=== PATIENT | female | born 1965 | race Caucasian/White ===

== ENCOUNTER 2022-07-08 14:40 | Outpatient (CLI) | payer BC, SELFPAY ==
--- NOTE | 2022-07-08 15:00 | CRLHL7_ITS ---
For Patients: As a result of the Century Cures Act, medical imaging exams and procedure reports are released immediately into your electronic medical record. You may view this report before your referring provider. If you have questions, please contact your health care provider. DXA BONE MINERAL DENSITY STUDY Current height (in): 66.0. Weight (lb): 133.0. Menopause age: 48. Ethnicity: White. Reason for exam: Screening. 1. Have you had a previous hip or vertebral fracture? No. 2. Have you had any fractures during your adult life which did not result from significant trauma (e.g., auto accident)? No. 3. Did either of your parents have a hip fracture? No. 4. Do you smoke? No. 5. Have you ever taken Glucocorticoids? No. 6. Do you have rheumatoid arthritis? No. 7. Do you have secondary osteoporosis? No. 8. Do you drink 3 or more alcoholic drinks per day? No. 9. Are you being treated for osteoporosis? No. 10. Have you ever taken any of the following medications: Actonel, Evista, Fosamax, Miacalcin, Reclast, Boniva, Forteo, HRT (i.e. estrogen/hormone therapy), Protelos, Prolia, Vitamin D, Calcium, other ??? please specify. ANSWER: Yes, calcium, vitamin D. 11. Do you have any of the following medical conditions: Anorexia or bulimia, asthma or emphysema, end stage renal disease, hyperparathyroidism, any seizure disorders, cancer, inflammatory bowel diseases, hysterectomy, other ??? please specify. ANSWER: Yes, asthma. 12. What was your maximum height (inches)? 66. 13. Do you perform weight bearing exercise regularly? Yes. 14. Do you regularly consume dairy products? Yes. 15. Do you drink caffeinated beverages? Yes. 16. At what age did your period start? 9. 17. Are you premenopausal? No. 18. How many full term pregnancies have you had? 0. 19. Have you ever missed your period for more than 6 months in a row (not including or menopause)? No. TECHNIQUE: Bone mineral density study was performed using the CUPR. FINDINGS: The results of the study expressed as bone mineral density (BMD) are as follows: Lumbar spine L1 to L4: BMD: 0.896 g/cm2. T-score: -1.4. Z-score: 0.0. Neck Left: BMD: 0.690 g/cm2. T-score: -1.4. Z-score: -0.2. Right: BMD: 0.682 g/cm2. T-score: -1.5. Z-score: -0.3. Total Left: BMD: 0.811 g/cm2. T-score: -1.1. Z-score: -0.2. Right: BMD: 0.841 g/cm2. T-score: -0.8. Z-score: 0.1. IMPRESSION: Osteopenia. FRAX 10-year Fracture Risk Major Osteoporotic Fracture: 7.2 percent Hip Fracture: 0.6 percent Reported Risk Factors: [place] () Neck BMD = 0.682, BMI = 21.5 Triston Anglin M.D. Diagnostic Radiologist [email or web address] Transcribed: 9:42 a.m. DW/Dictated by: Triston Anglin MD @ 07/09/2022 6:29:00 AM (Electronically Signed)
== END 2022-07-08 14:41 | disposition home or self-care (01) ==
LOC: RAD 14:42
PROVIDERS: PCP Internal Medicine; Visit Provider Internal Medicine
DX: Z13.820 Encounter for screening for osteoporosis (principal); M85.89 Other specified disorders of bone density and structure, multiple sites; Z78.0 Asymptomatic menopausal state
CPT/HCPCS: 77080

== ENCOUNTER 2022-08-18 19:13 | Outpatient (CLI) | payer BC, SELFPAY ==
--- NOTE | 2022-08-18 19:30 | CRLHL7_ITS ---
For Patients: As a result of the Century Cures Act, medical imaging exams and procedure reports are released immediately into your electronic medical record. You may view this report before your referring provider. If you have questions, please contact your health care provider. BILATERAL SCREENING MAMMOGRAM WITH COMPUTER-AIDED DETECTION AND TOMOSYNTHESIS TECHNIQUE: CC and MLO views were obtained. These mammographic images have been obtained using full-field digital technique. These mammographic images were interpreted with the benefit of computer-aided detection. Breast Tomosynthesis was used in this interpretation. COMPARISON FILM: 03/21/2019, 04/17/2020, 06/06/2021. FINDINGS: The breasts are heterogeneously dense, which may obscure small masses IMPRESSION: There is no radiographic evidence for malignancy. ASSESSMENT: BI-RADS Category 1: Negative RECOMMENDATION: Routine screening mammogram in 1 year. A lay language report of this examination will be provided to the patient. Triston Anglin M.D. Diagnostic Radiologist [email or web address] Transcribed: 1:17 p.[email or web address] wen/Dictated by: Triston Anglin MD @ 08/26/2022 9:04:00 AM (Electronically Signed)
== END 2022-08-18 19:14 | disposition home or self-care (01) ==
LOC: MAMMO 19:13
PROVIDERS: PCP Internal Medicine; Visit Provider Internal Medicine
DX: Z12.31 Encounter for screening mammogram for malignant neoplasm of breast (principal); R92.2 Inconclusive mammogram
CPT/HCPCS: 77063; 77067

== ENCOUNTER 2023-04-27 09:30 | Outpatient (RCR) | payer BC, OTHER, SELFPAY ==
--- NOTE | 2023-02-24 18:07 | OT.OPOE ---
OT Outpatient Ortho Eval OT Outpatient Ortho Eval* Start: 02/24/23 14:20 Freq: Status: Active Protocol: Document 02/24/23 14:21 LCN (Rec: 02/24/23 18:02 LCN [id number]) E-signed By Yue Murray, OTR/L, CLT OT OP Ortho Eval Details Complexity Complexity Low Insurance Information Insurance Information Blue [employer] Outpatient History/Precautions Current Condition/Medical Diagnosis Referring Provider Dr. Guicho Gastelum Treatment Diagnosis L thumb pain/strain Date of Onset 02/22/23 Medical Conditions Respiratory,Osteoporosis Other Conditions H/o R lateral epicondylitis 15 yrs ago ( responded well to US STM, ionto) and had B CTR in ~2012. REcent dx of osteopenia. Medical/Functional History Medical History Reviewed Yes Prior Level of Function/Mobility Very active, lots of home projects, knitting, reading on Sharlene. 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 Fitness yoga and body weight calisthenics at home. Ortho Subjective Subjective Subjective Gracie Lazaro is a vibrant 57 y/ o female who has been having waxing and waning L thumb pain in the past year. 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 Currently it is hurting to grasp small cans from the top, pulling bags, boxes across surfaces, hook grasp with groceries. W/ chopping vegetables for making chili, still hurting at L CMC base from this am 4/10. Knitting does not hurt. Has adapted her phone Sharlene with pop sockets already. Pain Assessment Pain Present Pain Present Pain Reported Location L thumb CMC Description Pressure,Dull, Achy,Throbbing, Stabbing,With Movement, Heaviness Intensity 4 Range of Motion and Strength Hand/Finger/Thumb Range of Motion and Strength Hand/Finger/Thumb Range of Motion and Gets pain with weightbearing Strength in palms with down dog/planks . Full WR EX, FL, RD, UD ROM B. Tighter in scrub test at CMC's, CMC squaring B. L TH hyper flexes to 90 of 60 at IP of L TH, W deformity starting/hyperextends to 40 degrees at MP. Kepangi opposition to 10/10 and retropulsion to 2.5 of 4, narrowed web adductor space. 0/10 pn wth L gripping. 5/10 pn at IP during L hooker pinch, no pain with 3 pt pinch. Hand Pinch/Labeling Strategist Strength Hand Right Labeling Strategist Strength Position 1 (lbs) 72 Lateral Pinch Strength (lbs) 16 Three Point Pinch (lbs) 13 Left Labeling Strategist Strength Position 1 (lbs) 49 Lateral Pinch Strength (lbs) 7 Three Point Pinch (lbs) 10 Upper Extremity Special Tests Tenosynovitis Wrist Finklestein Test Positive Left Degenerative Arthritis Hand Trapeziometacarpal Joint Grind Test Positive Left OT Problems Problems Problems Decreased Strength,Decreased Range of Motion,Decreased Dexterity,Pain,Lifting, Gripping,Pinching Other Problems Opening Containers,Computer, Fasteners Patient Potential Excellent Assessment Assessment Assessment With Gracie's L thumb OA changes , tenosynovitis, edema, pain, ROM and strength loss of L hand/wrist limiting daily tasks, she would benefit from skilled OT to address these areas. Occupational Therapy Treatment Plan - OP Potential Rehabilitation Potential Excellent Set Goals Goals Set with Patient Yes Goals Goals In 8 weeks, Gracie will demonstrate:? 1) Decreased pn to <2/10 80% of the time with sustained gripping, carrying groceries, reading books and chopping vegetables 2) I HEP for stretching, gradual strengthening and self mgmt strategies. 3) improved L financial reporting accountant strength to 60# and hooker pinch to 10# with L thumb pain < 1/10. 4)??Pt to be fit with functional bracing (for CMC, wrist,) and use adaptive strategies to protect joint integrity to support less pain with ADL. Target Date 05/26/22 Treatment Plan Treatment Plan Evaluation,Edema Control, Iontophoresis,Joint Mobilization,Manual Therapy, Splinting,Ultrasound, Therapeutic Exercise,Self Care /Home Management,Education Expected Frequency 1-2x Week Expected Duration 8-10 Weeks Home Program Home Program Home Program Initiated Home Program Specifics Joint blcoking , AROM of L thumb, ice cup massage. Certification Certification I Certify That: Therapy Services Provided
== END 2023-08-25 23:59 | disposition home or self-care (01) ==
PROVIDERS: PCP Internal Medicine; Visit Provider Internal Medicine
DX: S56.012A Strain of flexor muscle, fascia and tendon of left thumb at forearm level, initial encounter (principal); Z51.89 Encounter for other specified aftercare
CPT/HCPCS: 97033; 97035; 97110; 97140; 97165; 97535; L3933; X5282

== ENCOUNTER 2023-05-28 08:38 | Outpatient (CLI) | payer OTHER, SELFPAY | END 2023-05-28 08:39 | disposition home or self-care (01) | PROVIDERS: PCP Internal Medicine; Referring Provider Internal Medicine; Visit Provider Internal Medicine | DX: Z13.6 Encounter for screening for cardiovascular disorders (principal); Z13.1 Encounter for screening for diabetes mellitus | CPT/HCPCS: 80061; 82947 ==

== ENCOUNTER 2023-08-20 07:46 | Outpatient (CLI) | payer OTHER, SELFPAY ==
--- NOTE | 2023-08-20 08:15 | MM_ITS ---
Patient: ROCÍO CALLEJAS Facility:?[facility] Patient ID:?[id number] Site Patient ID:?[id number] Site :?[id number] Study:?XRay-Breast Bilateral 3D W/CAD-08/20/2023 9:39:14 AM Ordering Physician:Ermelinda Verdin Final Report: BILATERAL SCREENING MAMMOGRAM WITH COMPUTER-AIDED DETECTION AND TOMOSYNTHESIS TECHNIQUE: CC and MLO views were obtained. These mammographic images have been obtained using full-field digital technique. These mammographic images were interpreted with the benefit of computer-aided detection. Breast Tomosynthesis was used in this interpretation. COMPARISON FILM: 08/18/22, 06/06/21, 04/17/20. FINDINGS: The breasts are heterogeneously dense, which may obscure small masses. IMPRESSION: There is no radiographic evidence for malignancy. ASSESSMENT: BI-RADS Category 1: Negative RECOMMENDATION: Routine screening mammogram in 1 year. A lay language report of this examination will be provided to the patient. Triston Anglin M.D. Diagnostic Radiologist [email or web address] ALISON/[email or web address] R& Transcribed: 1:52 p.m. SP/Dictated by: Tirston Anglin MD @ 08/20/2023 10:59:00 AM Signed by:?Triston Anglin MD @08/20/2023 2:49:27 PM (Electronic Signature)
== END 2023-08-20 07:47 | disposition home or self-care (01) ==
LOC: MAMMO 07:47
PROVIDERS: PCP Internal Medicine; Visit Provider Internal Medicine
DX: Z12.31 Encounter for screening mammogram for malignant neoplasm of breast (principal); R92.2 Inconclusive mammogram
CPT/HCPCS: 77063; 77067

== ENCOUNTER 2024-08-11 07:49 | Outpatient (CLI) | payer OTHER, SELFPAY | END 2024-08-11 07:50 | disposition home or self-care (01) | LOC: NFLDREF 08-14 01:41 | PROVIDERS: PCP Internal Medicine; Referring Provider Internal Medicine; Visit Provider Internal Medicine | DX: M85.80 Other specified disorders of bone density and structure, unspecified site (principal) | CPT/HCPCS: 82306 ==